=== PATIENT | male | born 1975 ===

== ENCOUNTER 2021-02-04 20:15 | Emergency (ER) | payer BC ==
[2021-02-04 20:21] VITALS: BP 140/96; PULSE 90
--- NOTE | 2021-02-04 20:50 | EDM.PDOC ---
ED HPI GENERAL MEDICAL PROBLEM - General Chief Complaint: Lower Extremity Injury/Pain Stated Complaint: toe pain Time Seen by Provider: 02/04/21 20:20 Source of Information: Reports: Patient History Limitations: Reports: No Limitations - History of Present Illness INITIAL COMMENTS - FREE TEXT/NARRATIVE: patient presented to the ER with a c/o left foot pain - left little toe injury after he tripped on the ground while running. reports pain 7 out of 10. Able to walk but with apparent discomfort and pain. occurred an hour ago. Onset: Sudden Duration: Hour(s): (1) Location: Reports: Lower Extremity, Left Quality: Reports: Ache Severity: Mild Improves with: Reports: Immobilization Worsens with: Reports: Movement Left Toe-Little Pain Score (Numeric/FACES): 7 - Related Data Allergies Allergy/AdvReac Type Severity Reaction Status Date / Time No Known Allergies Allergy Verified 02/04/21 20:22 Home Meds: Home Meds hydroCHLOROthiazide [Hydrochlorothiazide] 50 mg PO DAILY 02/04/21 [History] Past Medical History Other Genitourinary History: patient has had 4 kidney stones since . 2 were surgically removed with 1 stent placed. thinks that they have been on the right. - Past Surgical History Other Male Surgeries/Procedures: 2 surgerically removed kidney stones with 1 stent placed each time Other Musculoskeletal Surgeries/Procedures:: Fractured right ankle in 1995 with pinning and fractured left elbow Social & Family History - Recreational Drug Use Recreational Drug Use: No Review of Systems - Review of Systems Review Of Systems: See Below Constitutional: Reports: No Symptoms Respiratory: Reports: No Symptoms Cardiovascular: Reports: No Symptoms GI/Abdominal: Reports: No Symptoms Neurological: Reports: No Symptoms Psychiatric: Reports: No Symptoms ED EXAM, GENERAL - Physical Exam Exam: See Below Exam Limited By: No Limitations General Appearance: Alert, WD/WN, No Apparent Distress Eye Exam: Bilateral Eye: EOMI, PERRL Head: Atraumatic Respiratory/Chest: No Respiratory Distress Cardiovascular: Normal Peripheral Pulses GI/Abdominal: Normal Bowel Sounds Back Exam: Normal Inspection Extremities: Other (left little toe pain ) Neurological: Alert, Oriented, No Motor/Sensory Deficits Psychiatric: Normal Affect Course - Vital Signs Last Recorded V/S: Last Vital Signs Temp 36.6 C 02/04/21 20:16 Pulse 90 02/04/21 20:16 Resp 18 02/04/21 20:16 BP 140/96 H 02/04/21 20:16 Pulse Ox 96 02/04/21 20:16 - Orders/Labs/Meds Orders: Active Orders 24 hr Category Date Time Status Toes Fifth Digit Lt T4 [CR] Stat Exams 02/04/21 20:24 Ordered Meds: Medications Discontinued Medications Generic Name Dose Route Start Last Admin Trade Name Vasiliy PRN Reason Stop Dose Admin Ketorolac Tromethamine 60 mg 02/04/21 20:39 Ketorolac 60 Mg/2 Ml Sdv IM 02/04/21 20:40 ONETIME ONE Morphine Sulfate 5 mg 02/04/21 20:39 Morphine 10 Mg/Ml Syringe IM 02/04/21 20:40 ONETIME ONE - Re-Assessments/Exams Free Text/Narrative Re-Assessment/Exam: xray - showed a fracture of fractures little toe at the proximal phalanx. non displaced. toe was splinted using a tape next to the adjacent toe. pain was controlled with IM morphine and Toradol Departure - Departure Time of Disposition: 20:50 Disposition: Home, Self-Care 01 Condition: Good Clinical Impression: Closed fracture of phalanx of fifth toe - Discharge Information *PRESCRIPTION DRUG MONITORING PROGRAM REVIEWED*: Not Applicable *COPY OF PRESCRIPTION DRUG MONITORING REPORT IN PATIENT AGNES: Not Applicable Instructions: Toe Fracture, [id number] Referrals: PCP,None [Primary Care Provider] - Sepsis Event Note (ED) - Evaluation Sepsis Screening Result: No Definite Risk - Focused Exam Vital Signs: Vital Signs Temp Pulse Resp BP Pulse Ox 02/04/21 20:16 36.6 C 90 18 140/96 H 96 - Problem List & Annotations (1) Closed fracture of phalanx of fifth toe SNOMED Code(s): 31660757, 734315873 Code(s): S92.503A - DISPLACED UNSP FRACTURE OF UNSP LESSER TOE(S), INIT Status: Acute Priority: Low Current Visit: Yes - Problem List Review Problem List Initiated/Reviewed/Updated: Yes - My Orders Last 24 Hours: My Active Orders 02/04/21 20:24 Toes Fifth Digit Lt T4 [CR] Stat - Assessment/Plan Last 24 Hours: My Active Orders 02/04/21 20:24 Toes Fifth Digit Lt T4 [CR] Stat Plan: - take pain medications as prescribed - ice the affected area - recommend to avoid putting weight on the affected site. - follow up with your PCP in 1-2 weeks as needed
[2021-02-04] MEDS: Morphine 10 MG/ML Syringe IM ONE (20:56)
[2021-02-04] MEDS: Ketorolac 60 MG/2 ML SDV IM ONE (20:57)
[2021-02-04] MEDS: Morphine 10 MG/ML SDV ONE (20:57)
[2021-02-04] MEDS: Ketorolac 60 MG/2 ML SDV ONE (20:58)
[2021-02-04] MEDS ORDERED: Acetaminophen/HYDROcodone 325-5 MG Tab ONE (21:00)
--- NOTE | 2021-02-05 08:28 | CR ---
DATE OF SERVICE: 02/04/21 CLINICAL DATA: left toe LEFT 5TH TOE: There is a minimally displaced oblique fracture through the base of the proximal phalanx. No other acute abnormalities. [id number] [facility]
== END 2021-02-04 21:10 | disposition home or self-care (01) ==
LOC: LB.ED 20:15
DX: S92.512A Displaced fracture of proximal phalanx of left lesser toe(s), initial encounter for closed fracture (principal); W01.0XXA Fall on same level from slipping, tripping and stumbling without subsequent striking against object, initial encounter; Y93.02 Activity, running
CPT/HCPCS: 73660-T4; 96372; 99283-25; A9270-GY; J1885; J2270

== ENCOUNTER 2023-11-09 06:25 | Emergency (ER) | payer BC ==
[2023-11-09] MEDS ORDERED: Ketorolac 30 MG/ML SDV ONE (06:43)
[2023-11-09] MEDS: Ketorolac 30 MG/ML SDV IVPUSH ONE (06:45)
[2023-11-09 07:12] LABS: BASOPHILS ABSOLUTE AUTO 0.03 K/uL (0.02-0.10); BASOPHILS PERCENT AUTO 0.3 % (0.0-0.5); EOSINOPHILS ABSOLUTE AUTO 0.12 K/uL (0.04-0.40); EOSINOPHILS PERCENT AUTO 1.3 % (1.0-5.0); HEMATOCRIT 41.6 % (40.0-54.0); HEMOGLOBIN 14.6 g/dL (13.0-18.0); LYMPHOCYTES ABSOLUTE AUTO 2.77 K/uL (1.50-4.00); LYMPHOCYTES PERCENT AUTO 30.5 % (20.0-40.0); MEAN CORPUSCULAR HEMOGLOBIN 29.7 pg (27.0-32.0); MEAN CORPUSCULAR HGB CONC 35.1 g/dL (31.0-35.0); MEAN CORPUSCULAR VOLUME 85 fL (76-96); MEAN PLATELET VOLUME 9.5 fL (6.0-10.0); MONOCYTES ABSOLUTE AUTO 0.69 K/uL (0.20-0.80); MONOCYTES PERCENT AUTO 7.6 % (3.0-10.0); NEUTROPHILS ABSOLUTE AUTO 5.46 K/uL (2.00-7.50); NEUTROPHILS PERCENT AUTO 60.3 % (45.0-70.0); PLATELET COUNT,PLT 277 K/uL (150-400); RED BLOOD CELL COUNT 4.92 M/uL (4.50-6.50); RED CELL DISTRIBUTION WIDTH 11.9 % (11.0-16.0); WHITE BLOOD CELL COUNT,WBC 9.1 K/uL (4.0-11.0)
[2023-11-09 07:22] LABS: A/G RATIO 1.1 (0.8-2.0); ANION GAP 12.8 mmol/L (5.0-15.0); BILIRUBIN TOTAL 0.2 mg/dL (0.0-1.0); BUN/CREATININE RATIO 15.2 (6-25); CALCIUM 8.7 mg/dL (8.5-10.1); CARBON DIOXIDE,CO2 27.6 mmol/L (21.0-32.0); CREATININE 0.92 mg/dL (0.70-1.30); EST CRCL DRUG DOSING (CG) 99.26 mL/min; POTASSIUM,K 3.4 mmol/L (3.5-5.1); PROTEIN TOTAL,TP 7.6 g/dL (6.4-8.2)
[2023-11-09] MEDS ORDERED: Acetaminophen/HYDROcodone 325-5 MG Tab ONE (07:30)
[2023-11-09] MEDS ORDERED: Lisinopril 20 MG Tab ONE (07:34)
[2023-11-09 07:37] VITALS: BP 192/119
[2023-11-09] MEDS: Lisinopril 20 MG Tab PO SCH (07:37)
[2023-11-09 07:58] VITALS: PULSE 54
[2023-11-12] MEDS: Ondansetron 4 MG/2 ML SDV IVPUSH ONE (08:03)
== END 2023-11-09 07:44 | disposition home or self-care (01) ==
LOC: LB.ED 06:25 → LB.US 06:25
DX: R10.9 Unspecified abdominal pain (principal); Z87.442 Personal history of urinary calculi; I10 Essential (primary) hypertension
CPT/HCPCS: 36415; 80053; 85025; 96374; 99283; 99284; A9270; J1885

== ENCOUNTER 2023-11-11 14:53 | Emergency (ER) | payer BC ==
[2023-11-11] MEDS ORDERED: Ketorolac 30 MG/ML SDV ONE (15:07)
[2023-11-11] MEDS: Ketorolac 30 MG/ML SDV IM ONE (15:13)
[2023-11-11 15:36] LABS: BASOPHILS ABSOLUTE AUTO 0.03 K/uL (0.02-0.10); BASOPHILS PERCENT AUTO 0.2 % (0.0-0.5); EOSINOPHILS ABSOLUTE AUTO 0.05 K/uL (0.04-0.40); EOSINOPHILS PERCENT AUTO 0.4 % (1.0-5.0); HEMATOCRIT 39.3 % (40.0-54.0); HEMOGLOBIN 13.9 g/dL (13.0-18.0); LYMPHOCYTES ABSOLUTE AUTO 1.64 K/uL (1.50-4.00); LYMPHOCYTES PERCENT AUTO 12.5 % (20.0-40.0); MEAN CORPUSCULAR HGB CONC 35.4 g/dL (31.0-35.0); MEAN CORPUSCULAR VOLUME 85 fL (76-96); MEAN PLATELET VOLUME 9.1 fL (6.0-10.0); MONOCYTES PERCENT AUTO 9.2 % (3.0-10.0); NEUTROPHILS ABSOLUTE AUTO 10.19 K/uL (2.00-7.50); NEUTROPHILS PERCENT AUTO 77.7 % (45.0-70.0); PLATELET COUNT,PLT 236 K/uL (150-400); RED BLOOD CELL COUNT 4.64 M/uL (4.50-6.50); RED CELL DISTRIBUTION WIDTH 11.7 % (11.0-16.0); WHITE BLOOD CELL COUNT,WBC 13.1 K/uL (4.0-11.0)
[2023-11-11 15:54] LABS: ALBUMIN 3.6 g/dL (3.4-5.0); ANION GAP 12.1 mmol/L (5.0-15.0); BILIRUBIN TOTAL 0.7 mg/dL (0.0-1.0); CALCIUM 8.7 mg/dL (8.5-10.1); CARBON DIOXIDE,CO2 30.5 mmol/L (21.0-32.0); CREATININE 1.5 mg/dL (0.70-1.30); EST CRCL DRUG DOSING (CG) 60.88 mL/min; POTASSIUM,K 3.6 mmol/L (3.5-5.1); PROTEIN TOTAL,TP 7.2 g/dL (6.4-8.2)
[2023-11-11 16:19] LABS: APPEARANCE,URINE CLEAR (CLEAR); BILIRUBIN,URINE NEGATIVE (NEGATIVE); COLOR,URINE YELLOW; GLUCOSE,URINE NEGATIVE (NEGATIVE); KETONES,URINE NEGATIVE (NEGATIVE); LEUKOCYTE ESTERASE,URINE NEGATIVE (NEGATIVE); NITRITE,URINE NEGATIVE (NEGATIVE); OCCULT BLOOD,URINE TRACE-INTACT (NEGATIVE); PROTEIN,URINE NEGATIVE (NEGATIVE); UROBILINOGEN,URINE 0.2 E.U./dL (0.2-1.0)
[2023-11-11 16:21] LABS: RBC,URINE 0-5 /HPF; SQUAMOUS EPITHELIAL CELLS,UR OCCASIONAL /HPF; WBC,URINE 0-5 /HPF
[2023-11-11 16:22] LABS: MUCUS,URINE OCCASIONAL /HPF
[2023-11-11] MEDS: Sodium Chloride 0.9% 1,000 ML IV ONE (16:50)
[2023-11-11] MEDS: Ondansetron 4 MG/2 ML SDV ONE (17:00)
[2023-11-11] MEDS: Sodium Chloride 0.9% 10 ML Syringe FLUSH PRN (17:02)
[2023-11-11 17:38] VITALS: BP 172/111; PULSE 71
[2023-11-11] MEDS: Ondansetron 4 MG/2 ML SDV IVPUSH ONE (19:00)
== END 2023-11-11 19:00 ==
LOC: LB.ED 14:53
DX: N13.2 Hydronephrosis with renal and ureteral calculous obstruction (principal); I10 Essential (primary) hypertension; Z79.899 Other long term (current) drug therapy
CPT/HCPCS: 36415; 74176; 80053; 81001; 83690; 85025; 96360; 96372; 99285; J1885; J3490; J7030